=== PATIENT | male | born 2000 | race Caucasian/White ===

== ENCOUNTER 2021-06-17 19:30 | Emergency (ER) | payer SELFPAY ==
[~2021-06-17] VITALS: Ht 175.2 cm; Wt 74.8 kg
[~2021-06-17 19:30] MED LIST: EC NAPROSYN500 MG PO; FLONASE0.05 MG/AC NS; HYDROCODONE BIT1 T11 PO; MONTELUKAST TAB 10M; MOTRIN800 MG PO; NKHM; OMEPRAZOLE20 MG PO; SINGULAIR10 MG PO; ZITHROMAX Z PA250 MG PO; ZOFRAN4 MG PO
[2021-06-17 20:04] VITALS: BP 128/93
== END 2021-06-18 00:42 | disposition home or self-care (01) ==
LOC: ED 19:30
DX: S61.452A Open bite of left hand, initial encounter (principal); Z20.3 Contact with and (suspected) exposure to rabies; Z88.1 Allergy status to other antibiotic agents; Z88.0 Allergy status to penicillin; W55.81XA Bitten by other mammals, initial encounter; Y93.89 Activity, other specified; Y92.89 Other specified places as the place of occurrence of the external cause; Y99.8 Other external cause status

== ENCOUNTER 2021-06-20 17:22 | Emergency (ER) | payer SELFPAY ==
[~2021-06-20] VITALS: Ht 175.2 cm; Wt 72.6 kg
[2021-06-20 17:51] VITALS: BP 137/90
== END 2021-06-20 21:17 | disposition home or self-care (01) ==
LOC: ED 17:22
DX: S61.452D Open bite of left hand, subsequent encounter (principal); Z23 Encounter for immunization; Z88.1 Allergy status to other antibiotic agents; Z88.0 Allergy status to penicillin; W55.81XD Bitten by other mammals, subsequent encounter

== ENCOUNTER 2021-06-24 19:34 | Emergency (ER) | payer SELFPAY ==
[~2021-06-24] VITALS: Ht 175.2 cm; Wt 72.6 kg
[2021-06-24 19:53] VITALS: BP 145/85
== END 2021-06-24 20:39 | disposition home or self-care (01) ==
LOC: ED 19:34
DX: Z23 Encounter for immunization (principal); Z88.1 Allergy status to other antibiotic agents; Z88.0 Allergy status to penicillin; Z90.49 Acquired absence of other specified parts of digestive tract

== ENCOUNTER 2021-07-01 19:31 | Emergency (ER) | payer SELFPAY ==
[~2021-07-01] VITALS: Ht 175.2 cm; Wt 72.6 kg
[2021-07-01 19:46] VITALS: BP 132/88
== END 2021-07-01 20:37 | disposition home or self-care (01) ==
LOC: ED 19:31
DX: Z23 Encounter for immunization (principal); Z88.1 Allergy status to other antibiotic agents; Z88.0 Allergy status to penicillin; Z90.49 Acquired absence of other specified parts of digestive tract

== ENCOUNTER 2022-04-19 12:31 | Emergency (ER) | payer OTHER ==
[~2022-04-19] VITALS: Wt 79.4 kg
[2022-04-19 12:40] VITALS: BP 143/78
== END 2022-04-19 17:08 | disposition home or self-care (01) ==
LOC: ED 12:31
DX: B02.9 Zoster without complications (principal)

== ENCOUNTER 2024-02-15 10:53 | Emergency (ER) | payer OTHER ==
[~2024-02-15] VITALS: Ht 177.8 cm; Wt 90.7 kg
[2024-02-15 10:58] VITALS: BP 133/88
[2024-02-15] MEDS ORDERED: Ondansetron Hydrochloride 4 MG TAB SL ONE (11:20)
[2024-02-15 11:29] LABS: BASO % 0.1 % (0.0-1.0); EOS # 0.1 10*3/uL (0.0-0.4); EOS % 0.9 % (1.0-4.0); HEMATOCRIT 44.6 % (42.0-52.0); LYMPH # 0.8 10*3/uL (1.3-4.4); LYMPH % 7.9 % (27.0-41.0); MEAN CELL VOLUME 89.4 fl (80.0-94.0); MEAN CORPUSCULAR HGB 29.3 pg (27.0-31.0); MEAN CORPUSCULAR HGB CONC 32.7 g/dl (33.0-37.0); MEAN PLATELET VOLUME 9.2 fl (9.6-12.3); MONO # 0.5 10*3/uL (0.1-1.0); MONO % 4.7 % (3.0-9.0); NEUT # 8.7 10*3/uL (2.3-7.9); NEUT % 86.1 % (47.0-73.0); PLATELET COUNT AUTOMATED 233 10*3/uL (130-400); RED BLOOD COUNT 4.99 10*6/uL (4.50-5.90); RED CELL DISTRI WIDTH 12.8 % (0-14.5); WHITE BLOOD COUNT 10.1 10*3/uL (4.8-10.8)
[2024-02-15 11:51] LABS: ALKALINE PHOSPHATASE 77 U/L (46-116); BUN 16 mg/dl (9-23); CHLORIDE 106 mmol/L (98-107); LIPASE 37 U/L (12-53); POTASSIUM 3.8 mmol/L (3.4-5.1); SGPT/ALT 32 U/L (5-49)
[2024-02-15] MEDS ORDERED: ONDANSETRON4 MG SL (13:19)
== END 2024-02-15 13:22 | disposition home or self-care (01) ==
LOC: ED 10:53
PROVIDERS: Internal Medicine
DX: K52.9 Noninfective gastroenteritis and colitis, unspecified (principal); Z88.1 Allergy status to other antibiotic agents; Z88.0 Allergy status to penicillin; Z90.49 Acquired absence of other specified parts of digestive tract

== ENCOUNTER 2024-05-18 11:28 | Emergency (ER) | payer OTHER ==
[~2024-05-18] VITALS: Ht 177.8 cm; Wt 90.7 kg
[~2024-05-18 11:28] MED LIST changes: +ONDANSETRON4 MG SL
[2024-05-18 11:38] VITALS: BP 123/74
== END 2024-05-18 14:05 | disposition home or self-care (01) ==
LOC: ED 11:28
DX: S56.912A Strain of unspecified muscles, fascia and tendons at forearm level, left arm, initial encounter (principal); Z88.0 Allergy status to penicillin; Z88.1 Allergy status to other antibiotic agents; Z90.49 Acquired absence of other specified parts of digestive tract; W01.0XXA Fall on same level from slipping, tripping and stumbling without subsequent striking against object, initial encounter; Y93.01 Activity, walking, marching and hiking; Y92.89 Other specified places as the place of occurrence of the external cause; Y99.8 Other external cause status

== ENCOUNTER 2024-11-15 12:38 | Emergency (ER) | payer OTHER ==
[~2024-11-15] VITALS: Ht 177.8 cm; Wt 86.2 kg
[2024-11-15 13:04] VITALS: BP 131/93
[2024-11-15] MEDS ORDERED: CYCLOBENZAPRINE5 M3 PO (13:18)
[2024-11-15] MEDS ORDERED: Ketorolac Tromethamine 30 MG/ML VIAL IM ONE (13:20)
[2024-11-15] MEDS ORDERED: methylPREDNISolone sod succ 125 MG VIAL IM ONE (13:20)
== END 2024-11-15 13:52 | disposition home or self-care (01) ==
LOC: ED 12:38
DX: S46.912A Strain of unspecified muscle, fascia and tendon at shoulder and upper arm level, left arm, initial encounter (principal); Z88.0 Allergy status to penicillin; Z88.1 Allergy status to other antibiotic agents; Z90.49 Acquired absence of other specified parts of digestive tract; X58.XXXA Exposure to other specified factors, initial encounter; Y93.89 Activity, other specified; Y92.89 Other specified places as the place of occurrence of the external cause; Y99.8 Other external cause status